=== PATIENT | male | born 1970 | race Caucasian/White ===

== ENCOUNTER 2016-11-17 10:48 | Inpatient (IN) | payer MEDICAID, MEDICARE ==
[~2016-11-17] VITALS: Ht 180.3 cm; Wt 73.9 kg
[~2016-11-17 10:48] MED LIST: BACITRACIN OINT TOPICAL ONE; DILAUDID 1 MG/ML AMP IV ONE; FENTANYL 100 MCG/2 ML AMP IV ONE; GLYCOPYRROLATE 0.2 MG/ML VIAL IV ONE; KETAMINE INJ 50 MG/ML VIAL IV ONE; LIDOCAINE 2% SYR 5 ML IV ONE; MEPERIDINE 25 MG/ML IV ONE; NEOSTIGMINE 10 MG/10 ML VIAL IV ONE; PROPOFOL 20 ML PER ML IV ONE; ROCURONIUM 50 MG VIAL IV ONE
[2016-11-17] MEDS ORDERED: ONDANSETRON 4 MG VIAL ONE (11:02)
[2016-11-17] MEDS ORDERED: DILAUDID 1 MG/ML AMP ONE ×4 (11:02→13:46)
[2016-11-17] MEDS ORDERED: SODIUM CHLORIDE 0.9% 1,000 ML ONE (11:10)
[2016-11-17] MEDS ORDERED: MULTIVITS ADULT INJ 10 ML, THIAMINE 100 MG, FOLIC ACID INJ 1 MG in SODIUM CHLORIDE 0.9%... IV ONE ×3 (11:15)
[2016-11-17] MEDS ORDERED: BISACODYL 10 MG SUPP RECTAL PRN (12:15)
[2016-11-17] MEDS ORDERED: SALINE FLUSH 10 ML FLUSH PRN (12:15)
[2016-11-17] MEDS ORDERED: ACETAMINOPHEN 325 MG TAB PO PRN (12:15)
[2016-11-17] MEDS ORDERED: CHLORDIAZEPOXIDE 25 MG CAP PO PRN (12:15)
[2016-11-17] MEDS ORDERED: DUONEB INH PRN (12:15)
[2016-11-17] MEDS ORDERED: ONDANSETRON 4 MG VIAL IV PRN (12:15)
[2016-11-17] MEDS ORDERED: BISACODYL EC 5 MG TAB PO PRN (12:15)
[2016-11-17] MEDS ORDERED: ALU/MAG/SIM 30 ML UDC PO PRN (12:15)
[2016-11-17] MEDS ORDERED: MAG HYDROX 30 ML UDC PO PRN (12:15)
[2016-11-17 14:47] VITALS: BP_SYST 135; RESP 15; TEMP 97.8
[2016-11-17 14:58] VITALS: Ht 180.3 cm; Wt 73.9 kg
[2016-11-17 15:27] VITALS: BP_SYST 127; RESP 15; TEMP 97.8
[2016-11-17] MEDS: FOLIC ACID 1 MG TAB PO SCH (15:59)
[2016-11-17] MEDS: THIAMINE 100 MG TAB PO SCH (15:59)
[2016-11-17] MEDS: DILAUDID 1 MG/ML AMP IV PRN ×2 (16:59→20:27)
[2016-11-17 19:39] VITALS: BP_SYST 130; RESP 18; TEMP 98
[2016-11-17] MEDS: SALINE FLUSH 10 ML FLUSH SCH (20:00)
[2016-11-17 21:47] VITALS: RESP 16
[2016-11-17 22:52] VITALS: BP_SYST 137; RESP 18; TEMP 98.2
[2016-11-17] MEDS: SODIUM CHLORIDE 0.9% 1,000 ML IV SCH (23:02)
[2016-11-18] VITALS (27 sets, daily range): BP systolic 110–153; RESP 15–27; TEMP 97.5–99
[2016-11-18] MEDS: MORPHINE 2 MG/ML SYR IV PRN ×6 (00:40→23:34)
[2016-11-18] MEDS: SODIUM CHLORIDE 0.9% FLUSH BAG 500 ML IV SCH (05:28)
[2016-11-18] MEDS: SODIUM CHLORIDE 0.9% 1,000 ML IV SCH ×2 (07:32→19:19)
[2016-11-18] MEDS ORDERED: CEFAZOLIN 2,000 MG in SODIUM CHLORIDE 0.9% 100 ML IV ONE (07:45)
[2016-11-18] MEDS: SALINE FLUSH 10 ML FLUSH SCH ×3 (08:56→20:00)
[2016-11-18] MEDS: PANTOPRAZOLE 40 MG VIAL IV SCH (08:56)
[2016-11-18] MEDS: ENOXAPARIN 30 MG/0.3 ML SYR SUBQ SCH (09:00)
[2016-11-18] MEDS ORDERED: MIDAZOLAM 2 MG/2 ML INJ IV ONE (14:25)
[2016-11-18] MEDS ORDERED: LACT RINGERS 1,000 ML IV SCH (14:25)
[2016-11-18] MEDS ORDERED: LIDOCAINE 1% BUFFERED 1 ML SYR INTRADERM PRN (14:25)
[2016-11-18] MEDS ORDERED: MIDAZOLAM 2 MG/2 ML INJ ONE (14:42)
[2016-11-18] MEDS ORDERED: MORPHINE 2 MG/ML SYR IV PRN ×2 (15:25)
[2016-11-18] MEDS ORDERED: DILAUDID 1 MG/ML AMP IV PRN ×2 (15:25)
[2016-11-18] MEDS ORDERED: ONDANSETRON 4 MG VIAL IV PRN ×3 (15:25→16:50)
[2016-11-18] MEDS ORDERED: MEPERIDINE 25 MG/ML IV PRN (15:25)
[2016-11-18] MEDS ORDERED: OXYCODONE 5 MG TAB PO PRN ×2 (15:25)
[2016-11-18] MEDS ORDERED: MORPHINE 4 MG/ML SYR IV PRN ×2 (15:25)
[2016-11-18] MEDS ORDERED: PROMETHAZINE 25 MG/ML VIAL IM/IV PRN (16:50)
[2016-11-18] MEDS ORDERED: SALINE FLUSH 10 ML FLUSH PRN (16:50)
[2016-11-18] MEDS: MAG HYDROX 30 ML UDC PO SCH (16:58)
[2016-11-18] MEDS: MEPERIDINE 25 MG/ML IV PRN ×2 (17:31→18:53)
[2016-11-18] MEDS ORDERED: DIPHENHYDRAMINE 50 MG/ML VIAL IV PRN (19:10)
[2016-11-18] MEDS: THIAMINE 100 MG TAB PO SCH (19:20)
[2016-11-18] MEDS: FOLIC ACID 1 MG TAB PO SCH (19:20)
[2016-11-18] MEDS: CEFAZOLIN 2,000 MG in SODIUM CHLORIDE 0.9% 100 ML IV SCH (20:01)
[2016-11-18] MEDS ORDERED: MISSING DOSE XX ONE (20:10)
[2016-11-18] MEDS: DOCUSATE SOD 100 MG CAP PO SCH (21:49)
[2016-11-19] MEDS: CEFAZOLIN 2,000 MG in SODIUM CHLORIDE 0.9% 100 ML IV SCH ×3 (02:37→15:33)
[2016-11-19] MEDS: MORPHINE 2 MG/ML SYR IV PRN ×3 (02:47→12:47)
[2016-11-19 03:19] VITALS: BP_SYST 110; RESP 16; TEMP 98.8
[2016-11-19] MEDS: SODIUM CHLORIDE 0.9% FLUSH BAG 500 ML IV SCH (05:17)
[2016-11-19] MEDS ORDERED: SODIUM CHLORIDE 0.9% FLUSH BAG 500 ML IV SCH (06:00)
[2016-11-19 07:16] VITALS: BP_SYST 117; RESP 18; TEMP 98.1
[2016-11-19] MEDS: SALINE FLUSH 10 ML FLUSH SCH ×2 (08:00→08:18)
[2016-11-19] MEDS: SODIUM CHLORIDE 0.9% 1,000 ML IV SCH (08:15)
[2016-11-19] MEDS: MAG HYDROX 30 ML UDC PO SCH (08:17)
[2016-11-19] MEDS: PANTOPRAZOLE 40 MG VIAL IV SCH (08:17)
[2016-11-19] MEDS: THIAMINE 100 MG TAB PO SCH (08:17)
[2016-11-19] MEDS: DOCUSATE SOD 100 MG CAP PO SCH (08:17)
[2016-11-19] MEDS: FOLIC ACID 1 MG TAB PO SCH (08:19)
[2016-11-19] MEDS: ENOXAPARIN 30 MG/0.3 ML SYR SUBQ SCH (08:20)
[2016-11-19 11:15] VITALS: BP_SYST 148; RESP 18; TEMP 98.9
[2016-11-19 14:44] VITALS: BP_SYST 126; RESP 16; TEMP 98.1
[2016-11-19 16:40] VITALS: BP_SYST 126; RESP 16; TEMP 98.1
[2016-11-19 16:45] VITALS: BP_SYST 126; RESP 16; TEMP 98.1
== END 2016-11-19 17:30 | disposition home or self-care (01) | DRG 494 ==
LOC: ER 10:48 → ENPENDDIS 12:13 → EMR 12:13 → 5THE 14:30
PROVIDERS: ADMIT Hospitalist; ATTEND Hospitalist
PROC: 0HQ1XZZ Repair Face Skin, External Approach (ICD-10-PCS; 2016-11-17)
PROC: 0QSG06Z Reposition Right Tibia with Intramedullary Internal Fixation Device, Open Approach (ICD-10-PCS; principal; 2016-11-18 15:09)
DX: S82.301A Unspecified fracture of lower end of right tibia, initial encounter for closed fracture (principal); I10 Essential (primary) hypertension; W19.XXXA Unspecified fall, initial encounter; S01.122A Laceration with foreign body of left eyelid and periocular area, initial encounter; F10.20 Alcohol dependence, uncomplicated; Z87.891 Personal history of nicotine dependence; F41.9 Anxiety disorder, unspecified; F32.9 Major depressive disorder, single episode, unspecified; F43.10 Post-traumatic stress disorder, unspecified; S82.831A Other fracture of upper and lower end of right fibula, initial encounter for closed fracture
CPT/HCPCS: 36415; 70450; 71010; 76001; 80053; 80307; 80320; 81001; 82140; 82607; 82746; 83735; 84100; 85025; 85610; 94799; 96361; 96365; 96375; 96376; 99223; 99233; 99238